=== PATIENT | female | born 1935 | race Caucasian/White ===

== ENCOUNTER 2022-05-27 15:35 | Emergency (ER) | payer OTHER, SELFPAY ==
--- NOTE | 2022-05-27 15:39 | MHC.CARE ---
[id number] CARE Team received call from licensed clinical social worker Latasha [phone]) at [facility] in [place]. They were sending this patient via ambulance on a [address] 12[address] for evaluation, by report patient has been aggressive, throwing objects, threatening others.
[2022-05-27 15:49] VITALS: BP 159/72; PULSE 86; RESP 18; TEMP 37.2; O2SAT 95; BMI 24.2
--- NOTE | 2022-05-27 16:38 | ED.PSYCH ---
HPI - Psych General Chief Complaint: Psychiatric Symptoms <HOMERO Lopez - Last Filed: 05/27/22 17:08> Stated Complaint: SECTION 12,AGITATION,HARMING OTHERS,COOPERATIVE <HOMERO Lopez Last Filed: 05/27/22 17:08> Time Seen by Provider: 05/27/22 16:25 <HOMERO Lopez - Last Filed: 05/27/22 17:08> Source: patient and EMS <HOMERO Lopez Last Filed: 05/27/22 17:08> Mode of arrival: EMS <HOMERO Lopez Last Filed: 05/27/22 17:08> History of Present Illness HPI Narrative: 86-year-old female with a past medical history of COPD, HTN, depression, osteoporosis, asthma, vascular dementia, presenting to the ED via EMS from [facility] for agitation and combativeness, wandering into other resident's rooms and packing the items and throwing them. History limited due to patient's baseline dementia, common cooperative during evaluation. Patient was sent to ED on section 12 <HOMERO Lopez - Last Filed: 05/27/22 17:08> Onset (ago): unknown <HOMERO Lopez - Last Filed: 05/27/22 17:08> Related Data Home Medications: Home Medications Medication Instructions Recorded Confirmed amlodipine 2.5 mg tablet 1 tab PO DAILY 05/27/22 05/27/22 aspirin 81 mg tablet,delayed 81 mg PO DAILY 05/27/22 05/27/22 release fluticasone propionate 110 2 puff inhalation DAILY 05/27/22 05/27/22 mcg/actuation HFA aerosol inhaler (Flovent HFA) gabapentin 100 mg capsule 1 cap PO DAILY 05/27/22 05/27/22 lisinopril 10 mg tablet 1 tab PO DAILY 05/27/22 05/27/22 metoprolol succinate 25 mg 1 tab PO DAILY 05/27/22 05/27/22 tablet,extended release 24 hr mirtazapine 7.5 mg tablet 1 tab PO BEDTIME 05/27/22 05/27/22 ondansetron HCl 4 mg tablet 4 mg PO Q8H PRN Nausea 05/27/22 05/27/22 quetiapine 50 mg tablet 100 mg PO BID 05/27/22 05/27/22 sennosides 8.6 mg tablet (senna) 8.6 mg PO BEDTIME 05/27/22 05/27/22 sennosides 8.6 mg tablet (senna) 8.6 mg PO DAILY PRN Constipation 05/27/22 05/27/22 sertraline 100 mg tablet 1 tab PO DAILY 05/27/22 05/27/22 white petrolatum-mineral oil 1 appl topical TID PRN Dry Skin 05/27/22 05/27/22 topical cream <HOMERO Lopez - Last Filed: 05/27/22 17:08> Allergies/Adverse Reactions: Allergies Allergy/AdvReac Type Severity Reaction Status Date / Time naproxen AdvReac Unknown Verified 05/27/22 15:52 <HOMERO Lopez - Last Filed: 05/27/22 17:08> Review of Systems Review of Systems: ROS limited due to baseline mental status <HOMERO Lopez - Last Filed: 05/27/22 17:08> Yes all other systems are reviewed and are negative <HOMERO Lopez - Last Filed: 05/27/22 17:08> Constitutional: Constitutional: Reports as per HPI <HOMERO Lopez - Last Filed: 05/27/22 17:08> Neurologic: Denies Abnormal speech present and Reports confusion (baseline) <HOMERO Lopez - Last Filed: 05/27/22 17:08> Psychiatric: Psychiatric: Reports confusion (baseline) <HOMERO Lopez - Last Filed: 05/27/22 17:08> [facility] Past Medical History Attestation statement: The following information was validated with the patient. <HOMERO Lopez - Last Filed: 05/27/22 17:08> Social History Social History: Social History Advance Directives: No Advance Directives Information Provided: No <HOMERO Lopez Last Filed: 05/27/22 17:08> Physical Exam Vital Signs: Vital Signs: Last Vital Signs Temp 97.9 F 05/29/22 07:34 Pulse 89 05/29/22 08:32 Resp 17 05/29/22 08:32 BP 122/70 05/29/22 08:32 Pulse Ox 95 05/29/22 08:32 O2 Del Method 05/29/22 08:32 BMI result Body Mass Index 24.2 <HOMERO Lopez - Last Filed: 05/27/22 17:08> Vital Signs: Last Vital Signs Temp 97.9 F 05/29/22 07:34 Pulse 89 05/29/22 08:32 Resp 17 05/29/22 08:32 BP 122/70 05/29/22 08:32 Pulse Ox 95 05/29/22 08:32 O2 Del Method 05/29/22 08:32 BMI result Body Mass Index 24.2 <Claudia Hodges NP - Last Filed: 05/28/22 02:53> Vital Signs: Last Vital Signs Temp 97.9 F 05/29/22 07:34 Pulse 89 05/29/22 08:32 Resp 17 05/29/22 08:32 BP 122/70 05/29/22 08:32 Pulse Ox 95 05/29/22 08:32 O2 Del Method 05/29/22 08:32 BMI result Body Mass Index 24.2 <HOMERO Navarro - Last Filed: 05/28/22 08:18> Vital Signs: Last Vital Signs Temp 97.9 F 05/29/22 07:34 Pulse 89 05/29/22 08:32 Resp 17 05/29/22 08:32 BP 122/70 05/29/22 08:32 Pulse Ox 95 05/29/22 08:32 O2 Del Method 05/29/22 08:32 BMI result Body Mass Index 24.2 <Vickie Shaw NP - Last Filed: 05/29/22 10:24> Const: General: cooperative, healthy appearing, no acute distress and confusion (baseline) <HOMERO Lopez - Last Filed: 05/27/22 17:08> Orientation/consciousness: confusion (baseline) <HOMERO Lopez - Last Filed: 05/27/22 17:08> HEENT: Head: Yes normal to inspection and Yes atraumatic <HOMERO Lopez - Last Filed: 05/27/22 17:08> Ears: hearing grossly normal bilaterally <Latasha Collado PA - Last Filed: 05/27/22 17:08> General nose exam: Normal external nose present <Latasha Charlesdavidopal PA - Last Filed: 05/27/22 17:08> Face and sinus: Yes normal facial exam <Latasha Charlesdavidopal PA - Last Filed: 05/27/22 17:08> Throat: Yes posterior oropharynx normal <Latasha Charlesjacquie PA - Last Filed: 05/27/22 17:08> Eyes: General: appearance normal, both eyes and all related structures <Latasha Charlesjacquie PA - Last Filed: 05/27/22 17:08> Pupils: Equal, round and reactive pupils present <Latasha Charlesjacquie PA - Last Filed: 05/27/22 17:08> EOM: EOMs intact bilaterally <Latasha Charlesjacquie PA - Last Filed: 05/27/22 17:08> Neck: Neck: Yes normal visual inspection and Yes no meningeal signs <Latasha Charlesjacquie PA - Last Filed: 05/27/22 17:08> Resp: Effort & Inspection: normal respiratory effort and no respiratory distress <Latasha Charlesjacquie PA - Last Filed: 05/27/22 17:08> Auscultation: clear to auscultation bilaterally, no crackles, no rales and no wheezes <Latasha Charlesjacquie PA - Last Filed: 05/27/22 17:08> Cardio: Rate: regular rate <Latasha Charlesjacquie PA - Last Filed: 05/27/22 17:08> Heart sounds: S1 normal heart sound present and S2 normal heart sound present <Latasha Charlesjacquie PA - Last Filed: 05/27/22 17:08> GI: Inspection: Yes normal to inspection <Latasha Charlesjacquie PA - Last Filed: 05/27/22 17:08> Palpation (GI): Soft to palpation, nontender, no guarding and not rigid <Latasha Charlesjacquie PA - Last Filed: 05/27/22 17:08> Skin: Rashes: no rashes <Latasha Aracelijacquie PA - Last Filed: 05/27/22 17:08> Wounds: no wounds <HOMERO Lopez - Last Filed: 05/27/22 17:08> Neuro: General: tone normal, moves all extremities, no meningeal signs, no focal motor deficits, CN's II-XI intact bilaterally and confusion (baseline) <HOMERO Lopez - Last Filed: 05/27/22 17:08> Cranial nerves: Yes Equal, round and reactive pupils present <HOMERO Lopez - Last Filed: 05/27/22 17:08> Speech: No Abnormal speech present <HOMERO Lopez - Last Filed: 05/27/22 17:08> Extrem: General: Yes normal to inspection and Yes no pedal edema <HOMERO Lopez - Last Filed: 05/27/22 17:08> Course Course Course Narrative: -1800-- ED care transferred to [facility] pending labs and crisis consult <HOMERO Lopez - Last Filed: 05/27/22 17:08> -1800-- ED care transferred to [facility] pending labs and crisis consult 19:00 urinalysis still pending. Requested bomb technician and RN to obtain labs. 21:00 urinalysis still pending. Requested bomb technician and RN to obtain sample. 23:00 urinalysis still pending. Requested bomb technician and RN to obtain sample. 03:00 urinalysis still pending. <Claudia Hodges NP - Last Filed: 05/28/22 02:53> -1800-- ED care transferred to [facility] pending labs and crisis consult 19:00 urinalysis still pending. Requested bomb technician and RN to obtain labs. 21:00 urinalysis still pending. Requested bomb technician and RN to obtain sample. 23:00 urinalysis still pending. Requested bomb technician and RN to obtain sample. 03:00 urinalysis still pending. 08:15 - urinalysis still pending. Straight cath ordered. Physician observation started at 8:10am. Patient placed in physician observation because patient is awaiting BHN/crisis evaluation for the possible need of inpatient psych admission. ?[facility] psych for worsening dementia. Need to r/o UTI At the time observation was started patient's vital signs were stable. Patient is alert and oriented. Neuro exam is non-focal. CV: RRR and lungs are clear. Will continue to monitor. <HOMERO Navarro - Last Filed: 05/28/22 08:18> Reevaluation(s) Reevaluation #1: -Patient cleared by [facility] crisis. UA negative for infection. Plan for discharge back to SNF <Vickie Shaw NP - Last Filed: 05/29/22 10:24> Medications Administered Generic Name Dose Route Start Last Admin Trade Name Freq PRN Reason Stop Dose Admin Amlodipine Besylate 2.5 mg 05/28/22 09:00 05/29/22 08:35 Amlodipine Besylate 2.5 Mg Tablet PO 2.5 mg DAILY SKYLA Administration Protocol Aspirin 81 mg 05/28/22 09:00 05/29/22 08:35 Aspirin Enteric Coated 81 Mg Tablet.Dr PO 81 mg DAILY SKYLA Administration Fluticasone Propionate 2 puff 05/28/22 09:00 05/29/22 08:26 Fluticasone Propionate 100 Mcg Blst.W.Dev INHALE 2 puff RDAILY SKYLA Administration Gabapentin 100 mg 05/28/22 09:00 05/29/22 08:35 Gabapentin 100 Mg Capsule PO 100 mg DAILY SKYLA Administration Lisinopril 10 mg 05/28/22 09:00 05/29/22 08:35 Lisinopril 10 Mg Tablet PO 10 mg DAILY SKYLA Administration Protocol Metoprolol Succinate 25 mg 05/28/22 09:00 05/29/22 08:36 Metoprolol Succinate Er 25 Mg Tab.Er.24h PO 25 mg DAILY SKYLA Administration Protocol Mirtazapine 7.5 mg 05/28/22 21:00 05/28/22 22:14 Mirtazapine 7.5 Mg Tablet PO 7.5 mg BEDTIME SKYLA Administration Quetiapine Fumarate 100 mg 05/28/22 09:00 05/29/22 08:35 Quetiapine Fumarate 100 Mg Tablet PO 100 mg BID SKYLA Administration Senna 8.6 mg 05/28/22 21:00 05/28/22 22:14 Sennosides 8.6 Mg Tablet PO 8.6 mg BEDTIME SKYLA Administration Senna 8.6 mg 05/28/22 08:16 05/29/22 08:34 Sennosides 8.6 Mg Tablet PO 8.6 mg DAILY PRN Administration Constipation Sertraline HCl 100 mg 05/28/22 09:00 05/29/22 08:35 Sertraline Hcl 100 Mg Tablet PO 100 mg DAILY SKYLA Administration <HOMERO Lopez - Last Filed: 05/27/22 17:08> Medications Administered Generic Name Dose Route Start Last Admin Trade Name Evangelina PRN Reason Stop Dose Admin Amlodipine Besylate 2.5 mg 05/28/22 09:00 05/29/22 08:35 Amlodipine Besylate 2.5 Mg Tablet PO 2.5 mg DAILY SKYLA Administration Protocol Aspirin 81 mg 05/28/22 09:00 05/29/22 08:35 Aspirin Enteric Coated 81 Mg Tablet.Dr PO 81 mg DAILY SKYLA Administration Fluticasone Propionate 2 puff 05/28/22 09:00 05/29/22 08:26 Fluticasone Propionate 100 Mcg Blst.W.Dev INHALE 2 puff RDAILY SKYLA Administration Gabapentin 100 mg 05/28/22 09:00 05/29/22 08:35 Gabapentin 100 Mg Capsule PO 100 mg DAILY SKYLA Administration Lisinopril 10 mg 05/28/22 09:00 05/29/22 08:35 Lisinopril 10 Mg Tablet PO 10 mg DAILY SKYLA Administration Protocol Metoprolol Succinate 25 mg 05/28/22 09:00 05/29/22 08:36 Metoprolol Succinate Er 25 Mg Tab.Er.24h PO 25 mg DAILY SKYLA Administration Protocol Mirtazapine 7.5 mg 05/28/22 21:00 05/28/22 22:14 Mirtazapine 7.5 Mg Tablet PO 7.5 mg BEDTIME SKYLA Administration Quetiapine Fumarate 100 mg 05/28/22 09:00 05/29/22 08:35 Quetiapine Fumarate 100 Mg Tablet PO 100 mg BID SKYLA Administration Senna 8.6 mg 05/28/22 21:00 05/28/22 22:14 Sennosides 8.6 Mg Tablet PO 8.6 mg BEDTIME SKYLA Administration Senna 8.6 mg 05/28/22 08:16 05/29/22 08:34 Sennosides 8.6 Mg Tablet PO 8.6 mg DAILY PRN Administration Constipation Sertraline HCl 100 mg 05/28/22 09:00 05/29/22 08:35 Sertraline Hcl 100 Mg Tablet PO 100 mg DAILY SKYLA Administration <Claudia Hodges NP - Last Filed: 05/28/22 02:53> Medications Administered Generic Name Dose Route Start Last Admin Trade Name Evangelina PRN Reason Stop Dose Admin Amlodipine Besylate 2.5 mg 05/28/22 09:00 05/29/22 08:35 Amlodipine Besylate 2.5 Mg Tablet PO 2.5 mg DAILY SKYLA Administration Protocol Aspirin 81 mg 05/28/22 09:00 05/29/22 08:35 Aspirin Enteric Coated 81 Mg Tablet.Dr PO 81 mg DAILY SKYLA Administration Fluticasone Propionate 2 puff 05/28/22 09:00 05/29/22 08:26 Fluticasone Propionate 100 Mcg Blst.W.Dev INHALE 2 puff RDAILY SKYLA Administration Gabapentin 100 mg 05/28/22 09:00 05/29/22 08:35 Gabapentin 100 Mg Capsule PO 100 mg DAILY SKYLA Administration Lisinopril 10 mg 05/28/22 09:00 05/29/22 08:35 Lisinopril 10 Mg Tablet PO 10 mg DAILY SKYLA Administration Protocol Metoprolol Succinate 25 mg 05/28/22 09:00 05/29/22 08:36 Metoprolol Succinate Er 25 Mg Tab.Er.24h PO 25 mg DAILY SKYLA Administration Protocol Mirtazapine 7.5 mg 05/28/22 21:00 05/28/22 22:14 Mirtazapine 7.5 Mg Tablet PO 7.5 mg BEDTIME SKYLA Administration Quetiapine Fumarate 100 mg 05/28/22 09:00 05/29/22 08:35 Quetiapine Fumarate 100 Mg Tablet PO 100 mg BID SKYLA Administration Senna 8.6 mg 05/28/22 21:00 05/28/22 22:14 Sennosides 8.6 Mg Tablet PO 8.6 mg BEDTIME SKYLA Administration Senna 8.6 mg 05/28/22 08:16 05/29/22 08:34 Sennosides 8.6 Mg Tablet PO 8.6 mg DAILY PRN Administration Constipation Sertraline HCl 100 mg 05/28/22 09:00 05/29/22 08:35 Sertraline Hcl 100 Mg Tablet PO 100 mg DAILY SKYLA Administration <HOMERO Navarro - Last Filed: 05/28/22 08:18> Medications Administered Generic Name Dose Route Start Last Admin Trade Name Evangelina PRN Reason Stop Dose Admin Amlodipine Besylate 2.5 mg 05/28/22 09:00 05/29/22 08:35 Amlodipine Besylate 2.5 Mg Tablet PO 2.5 mg DAILY SKYLA Administration Protocol Aspirin 81 mg 05/28/22 09:00 05/29/22 08:35 Aspirin Enteric Coated 81 Mg Tablet.Dr PO 81 mg DAILY SKYLA Administration Fluticasone Propionate 2 puff 05/28/22 09:00 05/29/22 08:26 Fluticasone Propionate 100 Mcg Blst.W.Dev INHALE 2 puff RDAILY SKYLA Administration Gabapentin 100 mg 05/28/22 09:00 05/29/22 08:35 Gabapentin 100 Mg Capsule PO 100 mg DAILY SKYLA Administration Lisinopril 10 mg 05/28/22 09:00 05/29/22 08:35 Lisinopril 10 Mg Tablet PO 10 mg DAILY SKYLA Administration Protocol Metoprolol Succinate 25 mg 05/28/22 09:00 05/29/22 08:36 Metoprolol Succinate Er 25 Mg Tab.Er.24h PO 25 mg DAILY SKYLA Administration Protocol Mirtazapine 7.5 mg 05/28/22 21:00 05/28/22 22:14 Mirtazapine 7.5 Mg Tablet PO 7.5 mg BEDTIME SKYLA Administration Quetiapine Fumarate 100 mg 05/28/22 09:00 05/29/22 08:35 Quetiapine Fumarate 100 Mg Tablet PO 100 mg BID SKYLA Administration Senna 8.6 mg 05/28/22 21:00 05/28/22 22:14 Sennosides 8.6 Mg Tablet PO 8.6 mg BEDTIME SKYLA Administration Senna 8.6 mg 05/28/22 08:16 05/29/22 08:34 Sennosides 8.6 Mg Tablet PO 8.6 mg DAILY PRN Administration Constipation Sertraline HCl 100 mg 05/28/22 09:00 05/29/22 08:35 Sertraline Hcl 100 Mg Tablet PO 100 mg DAILY SKYLA Administration <Vickie Shaw NP - Last Filed: 05/29/22 10:24> MDM - Psych MDM Narrative Medical decision making narrative: 86-year-old female with a past medical history of COPD, HTN, depression, osteoporosis, asthma, vascular dementia, presenting to the ED via EMS from [facility] for agitation and combativeness, wandering into other resident's rooms and packing the items and throwing them. On exam vital signs stable, NAD, baseline mental status/dementia, cooperative during evaluation. Will obtain labs and CXR to rule out metabolic/infectious etiologies and crisis consult <HOMERO Lopez - Last Filed: 05/27/22 17:08> Differential Diagnosis Differential diagnosis: Likely acute psychosis and mood disorder <HOMERO Lopez - Last Filed: 05/27/22 17:08> Medical Records Attestation: I reviewed the patient's medical records. <HOMERO Lopez - Last Filed: 05/27/22 17:08> Lab Data Attestation: I reviewed the patient's lab results. <HOMERO Lopez - Last Filed: 05/27/22 17:08> Result diagrams: : 05/27/22 19:16 05/27/22 19:16 <HOMERO Lopez - Last Filed: 05/27/22 17:08> Labs: Lab Results 05/27/22 05/27/22 05/27/22 Range/Units 19:16 19:16 19:16 WBC 4.4 L (4.8-10.8) X10*3/uL RBC 4.26 (4.20-5.50) X10*6/uL Hgb 12.3 (12.0-16.0) g/dl Hct 38.1 (37.0-47.0) % MCV 89.4 (80.0-98.0) fL MCH 28.9 (27.0-33.0) pg MCHC 32.3 (31.0-35.0) g/dl RDW 13.4 (11.0-16.0) % Plt Count 177 (160-400) X10*3/uL MPV 9.1 L (9.4-12.3) fL Immature Gran % (Auto) 0.5 H (0.0-0.4) % Neut % (Auto) 61.2 (45-73) % Lymph % (Auto) 27.6 (20-40) % [place] % (Auto) 7.7 (2-11) % Eos % (Auto) 2.3 (0-4) % Baso % (Auto) 0.7 (0-2) % Lymph # (Auto) 1.2 (1.2-4.9) X10*3/uL [place] # (Auto) 0.3 (0.1-1.2) X10*3/uL Eos # (Auto) 0.1 (0.0-0.4) X10*3/uL Baso # (Auto) 0.0 (0.0-0.2) X10*3/uL Abs Immat Gran (auto) 0.02 (0.00-0.03) X10*3/uL Absolute Neuts (auto) 2.7 (2.0-8.3) x10*3/uL Absolute Nucleated RBC 0.000 (0.0-0.012) X10*3/uL Nucleated RBC % (auto) 0.0 (0.0-0.2) /100WBC Sodium 139 (135-145) mmol/L Potassium 3.6 (3.3-5.1) mmol/L Chloride 105 (96-108) mmol/L Carbon Dioxide 26 (22-29) mmol/L Anion Gap 12 (12-20) BUN 20 H (9-16) mg/dL Creatinine 0.84 (0.5-1.4) mg/dL Estim Creat Clear Calc 41.5 Estimated GFR > 60 Random Glucose 121 H (60-115) mg/dL Calcium 9.0 (8.4-10.2) mg/dL Magnesium 1.9 (1.6-2.6) mg/dL Total Bilirubin 0.3 (0.0-1.0) mg/dL Direct Bilirubin < 0.2 (0.0-0.5) mg/dL AST 17 (5-31) U/L ALT 10 (0-31) U/L Alkaline Phosphatase 57 (39-117) U/L Total Protein 6.5 (6.5-8.0) g/dL Albumin 3.9 (3.5-5.0) g/dL Urine Color Urine Appearance Urine pH (5.0-9.0) Ur Specific [place] (1.005-1.025) Urine Protein (Neg-Trace) mg/dL Urine Glucose (UA) (Negative) mg/dL Urine Ketones (Negative) mg/dL Urine Blood (Negative) Urine Nitrite (Negative) Ur Leukocyte Esterase (Negative) Urine Opiates Screen (Not Detect) Urine Fentanyl Screen (Not Detect) Ur Barbiturates Screen (Not Detect) Ur Phencyclidine Scrn (Not Detect) Ur Amphetamines Screen (Not Detect) U Benzodiazepines Scrn (Not Detect) Urine Cocaine Screen (Not Detect) U Marijuana (THC) Screen (Not Detect) Influenza Type A (PCR) NEGATIVE (Negative) Influenza Type B (PCR) NEGATIVE (Negative) RSV RNA Qual (PCR) NEGATIVE (Negative) SARS-CoV-2 RNA (RT-PCR) NEGATIVE (Negative) 05/29/22 05/29/22 Range/Units 08:48 08:48 WBC (4.8-10.8) X10*3/uL RBC (4.20-5.50) X10*6/uL Hgb (12.0-16.0) g/dl Hct (37.0-47.0) % MCV (80.0-98.0) fL MCH (27.0-33.0) pg MCHC (31.0-35.0) g/dl RDW (11.0-16.0) % Plt Count (160-400) X10*3/uL MPV (9.4-12.3) fL Immature Gran % (Auto) (0.0-0.4) % Neut % (Auto) (45-73) % Lymph % (Auto) (20-40) % [place] % (Auto) (2-11) % Eos % (Auto) (0-4) % Baso % (Auto) (0-2) % Lymph # (Auto) (1.2-4.9) X10*3/uL [place] # (Auto) (0.1-1.2) X10*3/uL Eos # (Auto) (0.0-0.4) X10*3/uL Baso # (Auto) (0.0-0.2) X10*3/uL Abs Immat Gran (auto) (0.00-0.03) X10*3/uL Absolute Neuts (auto) (2.0-8.3) x10*3/uL Absolute Nucleated RBC (0.0-0.012) X10*3/uL Nucleated RBC % (auto) (0.0-0.2) /100WBC Sodium (135-145) mmol/L Potassium (3.3-5.1) mmol/L Chloride (96-108) mmol/L Carbon Dioxide (22-29) mmol/L Anion Gap (12-20) BUN (9-16) mg/dL Creatinine (0.5-1.4) mg/dL Estim Creat Clear Calc Estimated GFR Random Glucose (60-115) mg/dL Calcium (8.4-10.2) mg/dL Magnesium (1.6-2.6) mg/dL Total Bilirubin (0.0-1.0) mg/dL Direct Bilirubin (0.0-0.5) mg/dL AST (5-31) U/L ALT (0-31) U/L Alkaline Phosphatase (39-117) U/L Total Protein (6.5-8.0) g/dL Albumin (3.5-5.0) g/dL Urine Color Yellow Urine Appearance Clear Urine pH 6.5 (5.0-9.0) Ur Specific [place] 1.020 (1.005-1.025) Urine Protein Negative (Neg-Trace) mg/dL Urine Glucose (UA) Negative (Negative) mg/dL Urine Ketones 15 (Negative) mg/dL Urine Blood Negative (Negative) Urine Nitrite Negative (Negative) Ur Leukocyte Esterase Negative (Negative) Urine Opiates Screen Not Detected (Not Detect) Urine Fentanyl Screen Not Detected (Not Detect) Ur Barbiturates Screen Not Detected (Not Detect) Ur Phencyclidine Scrn Not Detected (Not Detect) Ur Amphetamines Screen Not Detected (Not Detect) U Benzodiazepines Scrn Not Detected (Not Detect) Urine Cocaine Screen Not Detected (Not Detect) U Marijuana (THC) Screen Not Detected (Not Detect) Influenza Type A (PCR) (Negative) Influenza Type B (PCR) (Negative) RSV RNA Qual (PCR) (Negative) SARS-CoV-2 RNA (RT-PCR) (Negative) <HOMERO Lopez - Last Filed: 05/27/22 17:08> Lab Results 05/27/22 05/27/22 05/27/22 Range/Units 19:16 19:16 19:16 WBC 4.4 L (4.8-10.8) X10*3/uL RBC 4.26 (4.20-5.50) X10*6/uL Hgb 12.3 (12.0-16.0) g/dl Hct 38.1 (37.0-47.0) % MCV 89.4 (80.0-98.0) fL MCH 28.9 (27.0-33.0) pg MCHC 32.3 (31.0-35.0) g/dl RDW 13.4 (11.0-16.0) % Plt Count 177 (160-400) X10*3/uL MPV 9.1 L (9.4-12.3) fL Immature Gran % (Auto) 0.5 H (0.0-0.4) % Neut % (Auto) 61.2 (45-73) % Lymph % (Auto) 27.6 (20-40) % [place] % (Auto) 7.7 (2-11) % Eos % (Auto) 2.3 (0-4) % Baso % (Auto) 0.7 (0-2) % Lymph # (Auto) 1.2 (1.2-4.9) X10*3/uL [place] # (Auto) 0.3 (0.1-1.2) X10*3/uL Eos # (Auto) 0.1 (0.0-0.4) X10*3/uL Baso # (Auto) 0.0 (0.0-0.2) X10*3/uL Abs Immat Gran (auto) 0.02 (0.00-0.03) X10*3/uL Absolute Neuts (auto) 2.7 (2.0-8.3) x10*3/uL Absolute Nucleated RBC 0.000 (0.0-0.012) X10*3/uL Nucleated RBC % (auto) 0.0 (0.0-0.2) /100WBC Sodium 139 (135-145) mmol/L Potassium 3.6 (3.3-5.1) mmol/L Chloride 105 (96-108) mmol/L Carbon Dioxide 26 (22-29) mmol/L Anion Gap 12 (12-20) BUN 20 H (9-16) mg/dL Creatinine 0.84 (0.5-1.4) mg/dL Estim Creat Clear Calc 41.5 Estimated GFR > 60 Random Glucose 121 H (60-115) mg/dL Calcium 9.0 (8.4-10.2) mg/dL Magnesium 1.9 (1.6-2.6) mg/dL Total Bilirubin 0.3 (0.0-1.0) mg/dL Direct Bilirubin < 0.2 (0.0-0.5) mg/dL AST 17 (5-31) U/L ALT 10 (0-31) U/L Alkaline Phosphatase 57 (39-117) U/L Total Protein 6.5 (6.5-8.0) g/dL Albumin 3.9 (3.5-5.0) g/dL Urine Color Urine Appearance Urine pH (5.0-9.0) Ur Specific [place] (1.005-1.025) Urine Protein (Neg-Trace) mg/dL Urine Glucose (UA) (Negative) mg/dL Urine Ketones (Negative) mg/dL Urine Blood (Negative) Urine Nitrite (Negative) Ur Leukocyte Esterase (Negative) Urine Opiates Screen (Not Detect) Urine Fentanyl Screen (Not Detect) Ur Barbiturates Screen (Not Detect) Ur Phencyclidine Scrn (Not Detect) Ur Amphetamines Screen (Not Detect) U Benzodiazepines Scrn (Not Detect) Urine Cocaine Screen (Not Detect) U Marijuana (THC) Screen (Not Detect) Influenza Type A (PCR) NEGATIVE (Negative) Influenza Type B (PCR) NEGATIVE (Negative) RSV RNA Qual (PCR) NEGATIVE (Negative) SARS-CoV-2 RNA (RT-PCR) NEGATIVE (Negative) 05/29/22 05/29/22 Range/Units 08:48 08:48 WBC (4.8-10.8) X10*3/uL RBC (4.20-5.50) X10*6/uL Hgb (12.0-16.0) g/dl Hct (37.0-47.0) % MCV (80.0-98.0) fL MCH (27.0-33.0) pg MCHC (31.0-35.0) g/dl RDW (11.0-16.0) % Plt Count (160-400) X10*3/uL MPV (9.4-12.3) fL Immature Gran % (Auto) (0.0-0.4) % Neut % (Auto) (45-73) % Lymph % (Auto) (20-40) % [place] % (Auto) (2-11) % Eos % (Auto) (0-4) % Baso % (Auto) (0-2) % Lymph # (Auto) (1.2-4.9) X10*3/uL [place] # (Auto) (0.1-1.2) X10*3/uL Eos # (Auto) (0.0-0.4) X10*3/uL Baso # (Auto) (0.0-0.2) X10*3/uL Abs Immat Gran (auto) (0.00-0.03) X10*3/uL Absolute Neuts (auto) (2.0-8.3) x10*3/uL Absolute Nucleated RBC (0.0-0.012) X10*3/uL Nucleated RBC % (auto) (0.0-0.2) /100WBC Sodium (135-145) mmol/L Potassium (3.3-5.1) mmol/L Chloride (96-108) mmol/L Carbon Dioxide (22-29) mmol/L Anion Gap (12-20) BUN (9-16) mg/dL Creatinine (0.5-1.4) mg/dL Estim Creat Clear Calc Estimated GFR Random Glucose (60-115) mg/dL Calcium (8.4-10.2) mg/dL Magnesium (1.6-2.6) mg/dL Total Bilirubin (0.0-1.0) mg/dL Direct Bilirubin (0.0-0.5) mg/dL AST (5-31) U/L ALT (0-31) U/L Alkaline Phosphatase (39-117) U/L Total Protein (6.5-8.0) g/dL Albumin (3.5-5.0) g/dL Urine Color Yellow Urine Appearance Clear Urine pH 6.5 (5.0-9.0) Ur Specific [place] 1.020 (1.005-1.025) Urine Protein Negative (Neg-Trace) mg/dL Urine Glucose (UA) Negative (Negative) mg/dL Urine Ketones 15 (Negative) mg/dL Urine Blood Negative (Negative) Urine Nitrite Negative (Negative) Ur Leukocyte Esterase Negative (Negative) Urine Opiates Screen Not Detected (Not Detect) Urine Fentanyl Screen Not Detected (Not Detect) Ur Barbiturates Screen Not Detected (Not Detect) Ur Phencyclidine Scrn Not Detected (Not Detect) Ur Amphetamines Screen Not Detected (Not Detect) U Benzodiazepines Scrn Not Detected (Not Detect) Urine Cocaine Screen Not Detected (Not Detect) U Marijuana (THC) Screen Not Detected (Not Detect) Influenza Type A (PCR) (Negative) Influenza Type B (PCR) (Negative) RSV RNA Qual (PCR) (Negative) SARS-CoV-2 RNA (RT-PCR) (Negative) <Claudia Hodges, NIDIA - Last Filed: 05/28/22 02:53> Lab Results 05/27/22 05/27/22 05/27/22 Range/Units 19:16 19:16 19:16 WBC 4.4 L (4.8-10.8) X10*3/uL RBC 4.26 (4.20-5.50) X10*6/uL Hgb 12.3 (12.0-16.0) g/dl Hct 38.1 (37.0-47.0) % MCV 89.4 (80.0-98.0) fL MCH 28.9 (27.0-33.0) pg MCHC 32.3 (31.0-35.0) g/dl RDW 13.4 (11.0-16.0) % Plt Count 177 (160-400) X10*3/uL MPV 9.1 L (9.4-12.3) fL Immature Gran % (Auto) 0.5 H (0.0-0.4) % Neut % (Auto) 61.2 (45-73) % Lymph % (Auto) 27.6 (20-40) % [place] % (Auto) 7.7 (2-11) % Eos % (Auto) 2.3 (0-4) % Baso % (Auto) 0.7 (0-2) % Lymph # (Auto) 1.2 (1.2-4.9) X10*3/uL [place] # (Auto) 0.3 (0.1-1.2) X10*3/uL Eos # (Auto) 0.1 (0.0-0.4) X10*3/uL Baso # (Auto) 0.0 (0.0-0.2) X10*3/uL Abs Immat Gran (auto) 0.02 (0.00-0.03) X10*3/uL Absolute Neuts (auto) 2.7 (2.0-8.3) x10*3/uL Absolute Nucleated RBC 0.000 (0.0-0.012) X10*3/uL Nucleated RBC % (auto) 0.0 (0.0-0.2) /100WBC Sodium 139 (135-145) mmol/L Potassium 3.6 (3.3-5.1) mmol/L Chloride 105 (96-108) mmol/L Carbon Dioxide 26 (22-29) mmol/L Anion Gap 12 (12-20) BUN 20 H (9-16) mg/dL Creatinine 0.84 (0.5-1.4) mg/dL Estim Creat Clear Calc 41.5 Estimated GFR > 60 Random Glucose 121 H (60-115) mg/dL Calcium 9.0 (8.4-10.2) mg/dL Magnesium 1.9 (1.6-2.6) mg/dL Total Bilirubin 0.3 (0.0-1.0) mg/dL Direct Bilirubin < 0.2 (0.0-0.5) mg/dL AST 17 (5-31) U/L ALT 10 (0-31) U/L Alkaline Phosphatase 57 (39-117) U/L Total Protein 6.5 (6.5-8.0) g/dL Albumin 3.9 (3.5-5.0) g/dL Urine Color Urine Appearance Urine pH (5.0-9.0) Ur Specific [place] (1.005-1.025) Urine Protein (Neg-Trace) mg/dL Urine Glucose (UA) (Negative) mg/dL Urine Ketones (Negative) mg/dL Urine Blood (Negative) Urine Nitrite (Negative) Ur Leukocyte Esterase (Negative) Urine Opiates Screen (Not Detect) Urine Fentanyl Screen (Not Detect) Ur Barbiturates Screen (Not Detect) Ur Phencyclidine Scrn (Not Detect) Ur Amphetamines Screen (Not Detect) U Benzodiazepines Scrn (Not Detect) Urine Cocaine Screen (Not Detect) U Marijuana (THC) Screen (Not Detect) Influenza Type A (PCR) NEGATIVE (Negative) Influenza Type B (PCR) NEGATIVE (Negative) RSV RNA Qual (PCR) NEGATIVE (Negative) SARS-CoV-2 RNA (RT-PCR) NEGATIVE (Negative) 05/29/22 05/29/22 Range/Units 08:48 08:48 WBC (4.8-10.8) X10*3/uL RBC (4.20-5.50) X10*6/uL Hgb (12.0-16.0) g/dl Hct (37.0-47.0) % MCV (80.0-98.0) fL MCH (27.0-33.0) pg MCHC (31.0-35.0) g/dl RDW (11.0-16.0) % Plt Count (160-400) X10*3/uL MPV (9.4-12.3) fL Immature Gran % (Auto) (0.0-0.4) % Neut % (Auto) (45-73) % Lymph % (Auto) (20-40) % [place] % (Auto) (2-11) % Eos % (Auto) (0-4) % Baso % (Auto) (0-2) % Lymph # (Auto) (1.2-4.9) X10*3/uL [place] # (Auto) (0.1-1.2) X10*3/uL Eos # (Auto) (0.0-0.4) X10*3/uL Baso # (Auto) (0.0-0.2) X10*3/uL Abs Immat Gran (auto) (0.00-0.03) X10*3/uL Absolute Neuts (auto) (2.0-8.3) x10*3/uL Absolute Nucleated RBC (0.0-0.012) X10*3/uL Nucleated RBC % (auto) (0.0-0.2) /100WBC Sodium (135-145) mmol/L Potassium (3.3-5.1) mmol/L Chloride (96-108) mmol/L Carbon Dioxide (22-29) mmol/L Anion Gap (12-20) BUN (9-16) mg/dL Creatinine (0.5-1.4) mg/dL Estim Creat Clear Calc Estimated GFR Random Glucose (60-115) mg/dL Calcium (8.4-10.2) mg/dL Magnesium (1.6-2.6) mg/dL Total Bilirubin (0.0-1.0) mg/dL Direct Bilirubin (0.0-0.5) mg/dL AST (5-31) U/L ALT (0-31) U/L Alkaline Phosphatase (39-117) U/L Total Protein (6.5-8.0) g/dL Albumin (3.5-5.0) g/dL Urine Color Yellow Urine Appearance Clear Urine pH 6.5 (5.0-9.0) Ur Specific [place] 1.020 (1.005-1.025) Urine Protein Negative (Neg-Trace) mg/dL Urine Glucose (UA) Negative (Negative) mg/dL Urine Ketones 15 (Negative) mg/dL Urine Blood Negative (Negative) Urine Nitrite Negative (Negative) Ur Leukocyte Esterase Negative (Negative) Urine Opiates Screen Not Detected (Not Detect) Urine Fentanyl Screen Not Detected (Not Detect) Ur Barbiturates Screen Not Detected (Not Detect) Ur Phencyclidine Scrn Not Detected (Not Detect) Ur Amphetamines Screen Not Detected (Not Detect) U Benzodiazepines Scrn Not Detected (Not Detect) Urine Cocaine Screen Not Detected (Not Detect) U Marijuana (THC) Screen Not Detected (Not Detect) Influenza Type A (PCR) (Negative) Influenza Type B (PCR) (Negative) RSV RNA Qual (PCR) (Negative) SARS-CoV-2 RNA (RT-PCR) (Negative) <HOMERO Navarro - Last Filed: 05/28/22 08:18> Lab Results 05/27/22 05/27/22 05/27/22 Range/Units 19:16 19:16 19:16 WBC 4.4 L (4.8-10.8) X10*3/uL RBC 4.26 (4.20-5.50) X10*6/uL Hgb 12.3 (12.0-16.0) g/dl Hct 38.1 (37.0-47.0) % MCV 89.4 (80.0-98.0) fL MCH 28.9 (27.0-33.0) pg MCHC 32.3 (31.0-35.0) g/dl RDW 13.4 (11.0-16.0) % Plt Count 177 (160-400) X10*3/uL MPV 9.1 L (9.4-12.3) fL Immature Gran % (Auto) 0.5 H (0.0-0.4) % Neut % (Auto) 61.2 (45-73) % Lymph % (Auto) 27.6 (20-40) % [place] % (Auto) 7.7 (2-11) % Eos % (Auto) 2.3 (0-4) % Baso % (Auto) 0.7 (0-2) % Lymph # (Auto) 1.2 (1.2-4.9) X10*3/uL [place] # (Auto) 0.3 (0.1-1.2) X10*3/uL Eos # (Auto) 0.1 (0.0-0.4) X10*3/uL Baso # (Auto) 0.0 (0.0-0.2) X10*3/uL Abs Immat Gran (auto) 0.02 (0.00-0.03) X10*3/uL Absolute Neuts (auto) 2.7 (2.0-8.3) x10*3/uL Absolute Nucleated RBC 0.000 (0.0-0.012) X10*3/uL Nucleated RBC % (auto) 0.0 (0.0-0.2) /100WBC Sodium 139 (135-145) mmol/L Potassium 3.6 (3.3-5.1) mmol/L Chloride 105 (96-108) mmol/L Carbon Dioxide 26 (22-29) mmol/L Anion Gap 12 (12-20) BUN 20 H (9-16) mg/dL Creatinine 0.84 (0.5-1.4) mg/dL Estim Creat Clear Calc 41.5 Estimated GFR > 60 Random Glucose 121 H (60-115) mg/dL Calcium 9.0 (8.4-10.2) mg/dL Magnesium 1.9 (1.6-2.6) mg/dL Total Bilirubin 0.3 (0.0-1.0) mg/dL Direct Bilirubin < 0.2 (0.0-0.5) mg/dL AST 17 (5-31) U/L ALT 10 (0-31) U/L Alkaline Phosphatase 57 (39-117) U/L Total Protein 6.5 (6.5-8.0) g/dL Albumin 3.9 (3.5-5.0) g/dL Urine Color Urine Appearance Urine pH (5.0-9.0) Ur Specific [place] (1.005-1.025) Urine Protein (Neg-Trace) mg/dL Urine Glucose (UA) (Negative) mg/dL Urine Ketones (Negative) mg/dL Urine Blood (Negative) Urine Nitrite (Negative) Ur Leukocyte Esterase (Negative) Urine Opiates Screen (Not Detect) Urine Fentanyl Screen (Not Detect) Ur Barbiturates Screen (Not Detect) Ur Phencyclidine Scrn (Not Detect) Ur Amphetamines Screen (Not Detect) U Benzodiazepines Scrn (Not Detect) Urine Cocaine Screen (Not Detect) U Marijuana (THC) Screen (Not Detect) Influenza Type A (PCR) NEGATIVE (Negative) Influenza Type B (PCR) NEGATIVE (Negative) RSV RNA Qual (PCR) NEGATIVE (Negative) SARS-CoV-2 RNA (RT-PCR) NEGATIVE (Negative) 05/29/22 05/29/22 Range/Units 08:48 08:48 WBC (4.8-10.8) X10*3/uL RBC (4.20-5.50) X10*6/uL Hgb (12.0-16.0) g/dl Hct (37.0-47.0) % MCV (80.0-98.0) fL MCH (27.0-33.0) pg MCHC (31.0-35.0) g/dl RDW (11.0-16.0) % Plt Count (160-400) X10*3/uL MPV (9.4-12.3) fL Immature Gran % (Auto) (0.0-0.4) % Neut % (Auto) (45-73) % Lymph % (Auto) (20-40) % [place] % (Auto) (2-11) % Eos % (Auto) (0-4) % Baso % (Auto) (0-2) % Lymph # (Auto) (1.2-4.9) X10*3/uL [place] # (Auto) (0.1-1.2) X10*3/uL Eos # (Auto) (0.0-0.4) X10*3/uL Baso # (Auto) (0.0-0.2) X10*3/uL Abs Immat Gran (auto) (0.00-0.03) X10*3/uL Absolute Neuts (auto) (2.0-8.3) x10*3/uL Absolute Nucleated RBC (0.0-0.012) X10*3/uL Nucleated RBC % (auto) (0.0-0.2) /100WBC Sodium (135-145) mmol/L Potassium (3.3-5.1) mmol/L Chloride (96-108) mmol/L Carbon Dioxide (22-29) mmol/L Anion Gap (12-20) BUN (9-16) mg/dL Creatinine (0.5-1.4) mg/dL Estim Creat Clear Calc Estimated GFR Random Glucose (60-115) mg/dL Calcium (8.4-10.2) mg/dL Magnesium (1.6-2.6) mg/dL Total Bilirubin (0.0-1.0) mg/dL Direct Bilirubin (0.0-0.5) mg/dL AST (5-31) U/L ALT (0-31) U/L Alkaline Phosphatase (39-117) U/L Total Protein (6.5-8.0) g/dL Albumin (3.5-5.0) g/dL Urine Color Yellow Urine Appearance Clear Urine pH 6.5 (5.0-9.0) Ur Specific [place] 1.020 (1.005-1.025) Urine Protein Negative (Neg-Trace) mg/dL Urine Glucose (UA) Negative (Negative) mg/dL Urine Ketones 15 (Negative) mg/dL Urine Blood Negative (Negative) Urine Nitrite Negative (Negative) Ur Leukocyte Esterase Negative (Negative) Urine Opiates Screen Not Detected (Not Detect) Urine Fentanyl Screen Not Detected (Not Detect) Ur Barbiturates Screen Not Detected (Not Detect) Ur Phencyclidine Scrn Not Detected (Not Detect) Ur Amphetamines Screen Not Detected (Not Detect) U Benzodiazepines Scrn Not Detected (Not Detect) Urine Cocaine Screen Not Detected (Not Detect) U Marijuana (THC) Screen Not Detected (Not Detect) Influenza Type A (PCR) (Negative) Influenza Type B (PCR) (Negative) RSV RNA Qual (PCR) (Negative) SARS-CoV-2 RNA (RT-PCR) (Negative) <Vickie Shaw, [employer]PER[employer] - Last Filed: 05/29/22 10:24> Discharge Plan Discharge Clinical Impression: Dementia with behavioral disturbance <HOMERO Lopez - Last Filed: 05/27/22 17:08> Patient Disposition: Xfer SNF <HOMERO Lopez - Last Filed: 05/27/22 17:08> Prescriptions: No Action sennosides [senna] 8.6 mg Tablet 8.6 mg PO DAILY PRN (Reason: Constipation) sennosides [senna] 8.6 mg Tablet 8.6 mg PO BEDTIME ondansetron HCl [Zofran] 4 mg Tablet 4 mg PO Q8H PRN (Reason: Nausea) sertraline 100 mg tablet 1 tab PO DAILY amlodipine 2.5 mg tablet 1 tab PO DAILY aspirin 81 mg Tablet,Delayed Release (Dr/Ec) 81 mg PO DAILY lisinopril 10 mg tablet 1 tab PO DAILY gabapentin 100 mg capsule 1 cap PO DAILY metoprolol succinate 25 mg tablet extended release 24 hr 1 tab PO DAILY fluticasone propionate [Flovent HFA] 110 mcg/actuation HFA aerosol inhaler 2 puff inhalation DAILY Eucerin Cream 1 appl TOPICAL TID PRN (Reason: Dry Skin) mirtazapine 7.5 mg tablet 1 tab PO BEDTIME quetiapine 50 mg tablet 100 mg PO BID <HOMERO Lopez - Last Filed: 05/27/22 17:08> Interventions: [place]-Suicide Risk Severity Scale Last Done: 05/27/22 23:32 <HOMERO Lopez - Last Filed: 05/27/22 17:08>
--- NOTE | 2022-05-27 16:57 | ECG_ITS ---
Test Reason : AGITATION Blood Pressure : / mmHG Vent. Rate : 077 BPM Atrial Rate : 077 BPM P-R Int : 160 ms QRS Dur : 092 ms QT Int : 380 ms P-R-T Axes : 054 -20 029 degrees QTc Int : 430 ms Normal sinus rhythm Normal ECG No previous ECGs available Referred By: Latasha Collado Electronically Signed By:Jose Hutchinson
--- NOTE | 2022-05-27 18:13 | PHA.MEDREC ---
Addendum entered by Dariusz Jensen [facility] 05/27/22 18:13: On [facility] med sheet amlodipine stated as 5 mg-2.5 tablet daily, verified with fill history states 2.5 mg daily Original Note: Pharmacy Consult ? Medication Reconciliation Pharmacy has completed the medication reconciliation.
[2022-05-27 19:20] LABS: MANUAL DIFF FLAG NO
[2022-05-27 19:22] LABS: Basophils Percent Auto 0.7 % (0-2); Eosinophils Absolute Auto 0.1 X10*3/uL (0.0-0.4); Eosinophils Percent Auto 2.3 % (0-4); Hematocrit 38.1 % (37.0-47.0); Hemoglobin 12.3 g/dl (12.0-16.0); Imm Gran Abs Auto 0.02 X10*3/uL (0.00-0.03); Imm Gran Pct Auto 0.5 % (0.0-0.4); Lymphocytes Absolute Auto 1.2 X10*3/uL (1.2-4.9); Lymphocytes Percent Auto 27.6 % (20-40); Mean Corpuscular HGB Conc 32.3 g/dl (31.0-35.0); Mean Corpuscular Hemoglobin 28.9 pg (27.0-33.0); Mean Corpuscular Volume 89.4 fL (80.0-98.0); Mean Platelet Volume 9.1 fL (9.4-12.3); Monocytes Absolute Auto 0.3 X10*3/uL (0.1-1.2); Monocytes Percent Auto 7.7 % (2-11); Neutrophils Absolute Auto 2.7 x10*3/uL (2.0-8.3); Neutrophils Percent Auto 61.2 % (45-73); Platelet Count 177 X10*3/uL (160-400); Red Blood Count 4.26 X10*6/uL (4.20-5.50); Red Cell Distribution Width 13.4 % (11.0-16.0); White Blood Count 4.4 X10*3/uL (4.8-10.8)
[2022-05-27 19:35] VITALS: BP 127/94; PULSE 72; RESP 16; TEMP 36.8; O2SAT 96
--- NOTE | 2022-05-27 19:35 | PC.NURSE ---
2000 rounding done ,vs taken ,this pct offer patient food by pt refused ,pt is in good mood smileing and playing with blankets .
[2022-05-27 19:40] LABS: Alanine Aminotransferase 10 U/L (0-31); Albumin Level 3.9 g/dL (3.5-5.0); Alkaline Phosphatase 57 U/L (39-117); Anion Gap 12 (12-20); Aspartate Amino Transferase 17 U/L (5-31); Bilirubin Direct < 0.2 mg/dL (0.0-0.5); Bilirubin Total 0.3 mg/dL (0.0-1.0); Blood Urea Nitrogen 20 mg/dL (9-16); Carbon Dioxide 26 mmol/L (22-29); Chloride 105 mmol/L (96-108); Creatinine Clr Calc Pharmacy 41.5; Estimated Glomerular Filt Rate > 60; Glucose Random 121 mg/dL (60-115); Magnesium 1.9 mg/dL (1.6-2.6); Potassium 3.6 mmol/L (3.3-5.1); Sodium 139 mmol/L (135-145); Total Protein 6.5 g/dL (6.5-8.0)
[2022-05-27 20:00] LABS: Influenza A PCR NEGATIVE (Negative); Influenza B PCR NEGATIVE (Negative); Resp Syncy Virus RNA Qual PCR NEGATIVE (Negative); SARS COV2 PCR INHOUSE NEGATIVE (Negative)
[2022-05-27 21:49] VITALS: BP 115/88; PULSE 72; RESP 16; TEMP 36.6; O2SAT 95
[2022-05-27 23:48] VITALS: BP 121/76; PULSE 73; RESP 16; TEMP 36.6; O2SAT 97
--- NOTE | 2022-05-27 23:50 | PC.NURSE ---
pt is unable to give urine sample at this time ,suhas baxter is aware .
[2022-05-28 02:00] VITALS: BP 130/72; PULSE 74; RESP 16; TEMP 36.8; O2SAT 97
--- NOTE | 2022-05-28 06:38 | PC.NURSE ---
[facility] smart sheet completed
[2022-05-28 07:13] VITALS: BP 163/75; PULSE 70; RESP 16; O2SAT 95
[2022-05-28] MEDS: Fluticasone Propionate 100 MCG BLST.W.DEV 2 PUFF INHALE (09:50)
[2022-05-28 09:51] VITALS: PULSE 87; RESP 16; O2SAT 97
[2022-05-28] MEDS: amLODIPine Besylate 2.5 MG TABLET PO (09:52)
[2022-05-28] MEDS: lisinopriL 10 MG TABLET PO (09:52)
[2022-05-28] MEDS: Aspirin Enteric Coated 81 MG TABLET.DR PO (09:53)
[2022-05-28] MEDS: Metoprolol Succinate ER 25 MG TAB.ER.24H PO (09:53)
[2022-05-28] MEDS: Gabapentin 100 MG CAPSULE PO (09:53)
[2022-05-28] MEDS: QUEtiapine Fumarate 100 MG TABLET PO ×2 (09:53→22:14)
[2022-05-28] MEDS: Sertraline HCL 100 MG TABLET PO (09:53)
--- NOTE | 2022-05-28 11:02 | MHC.CARE ---
Pt was assessed Pt [facility] crisis and found no not to meet criteria for [facility] admission.
[2022-05-28 12:00] VITALS: BP 170/75; PULSE 80; RESP 14; O2SAT 94
--- NOTE | 2022-05-28 16:26 | PC.NURSE ---
THIS PCT TOOK PT TO BATHROOM ,PT WAS NOT ABLE TO URINATE ,CHAR CRISTOBAL IS AWARE .
--- NOTE | 2022-05-28 19:07 | PC.NURSE ---
Pt sitting up with sitter watching, no complaints at this time.
[2022-05-28 21:55] VITALS: BP 162/69; PULSE 75; RESP 20; TEMP 36.6; O2SAT 98
[2022-05-28] MEDS: Sennosides 8.6 MG TABLET PO (22:14)
[2022-05-28] MEDS: Mirtazapine 7.5 MG TABLET PO (22:14)
--- NOTE | 2022-05-28 23:09 | PC.NURSE ---
Pt sleeping at this time, respirations regular.
--- NOTE | 2022-05-29 00:44 | PC.NURSE ---
Pt sleeping at this time respirations regular.
--- NOTE | 2022-05-29 02:19 | PC.NURSE ---
Pt sleeping at this time respirations regular.
--- NOTE | 2022-05-29 04:03 | PC.NURSE ---
Pt sleeping at this time respirations regular.
[2022-05-29 06:22] VITALS: BP 160/74; PULSE 64; RESP 16; TEMP 36.7; O2SAT 96
--- NOTE | 2022-05-29 06:26 | PC.NURSE ---
Pt sleeping at this time respirations regular.
[2022-05-29 07:34] VITALS: BP 126/71; PULSE 107; RESP 18; TEMP 36.6; O2SAT 97
[2022-05-29] MEDS: Fluticasone Propionate 100 MCG BLST.W.DEV 2 PUFF INHALE (08:26)
[2022-05-29 08:28] VITALS: PULSE 84; RESP 18; O2SAT 96
[2022-05-29 08:32] VITALS: BP 122/70; PULSE 89; RESP 17; O2SAT 95
[2022-05-29] MEDS: Sennosides 8.6 MG TABLET PO (08:34)
[2022-05-29] MEDS: Sertraline HCL 100 MG TABLET PO (08:35)
[2022-05-29] MEDS: Gabapentin 100 MG CAPSULE PO (08:35)
[2022-05-29] MEDS: Aspirin Enteric Coated 81 MG TABLET.DR PO (08:35)
[2022-05-29] MEDS: amLODIPine Besylate 2.5 MG TABLET PO (08:35)
[2022-05-29] MEDS: QUEtiapine Fumarate 100 MG TABLET PO (08:35)
[2022-05-29] MEDS: lisinopriL 10 MG TABLET PO (08:35)
[2022-05-29] MEDS: Metoprolol Succinate ER 25 MG TAB.ER.24H PO (08:36)
--- NOTE | 2022-05-29 08:47 | PC.NURSE ---
pt is alert no sob/stalin noted lungs - diminished all lobes. speaks in one word syllabl. heart sounds irregular. abd soft and non-tender, bs + x 4 quads. pt straight cath for urine. no edema noted. pt took her meds well. pt aware of plan of care.
[2022-05-29 09:00] LABS: Appearance Urine Clear; Color Urine Yellow; Glucose Urine UA Negative (Negative); Leukocyte Esterase Urine Negative (Negative); Nitrite Urine Negative (Negative); PH 6.5 (5.0-9.0); Urine Blood Negative (Negative); Urine Ketones 15 mg/dL (Negative); Urine Protein Negative (Neg-Trace)
[2022-05-29 09:08] LABS: Amphetamine Screen Urine Not Detected (Not Detect); Barbiturates, Urine Not Detected (Not Detect); Benzodiazepines Screen Urine Not Detected (Not Detect); Cannabinoid Screen Urine Not Detected (Not Detect); Cocaine Screen Urine Not Detected (Not Detect); Fentanyl, urine Not Detected (Not Detect); Opiate Screen Urine Not Detected (Not Detect); Phencyclidine Screen Urine Not Detected (Not Detect)
[2022-05-29 10:51] VITALS: BP 148/70; PULSE 85; RESP 17; TEMP 36.8; O2SAT 98
--- NOTE | 2022-05-29 11:53 | PC.NURSE ---
rn to rn report given to constantine at [facility].
== END 2022-05-29 11:55 | disposition skilled nursing facility (03) ==
PROVIDERS: Physician Assistant; Emergency Provider Internal Medicine
DX: F03.911 Unspecified dementia, unspecified severity, with agitation (principal); I10 Essential (primary) hypertension; Z20.822 Contact with and (suspected) exposure to COVID-19; Z79.82 Long term (current) use of aspirin; Z79.899 Other long term (current) drug therapy
CPT/HCPCS: 0241U; 36415; 51701; 80048; 80076; 80307; 81003; 83735; 85025; 93005; 94640; 99285